=== PATIENT | male | born 2000 | race Two or more races ===

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

== ENCOUNTER 2019-01-27 05:26 | Emergency (ER) | payer MEDICAID ==
[~2019-01-27] VITALS: Ht 172.7 cm; Wt 95.0 kg
[2019-01-27] MEDS ORDERED: PANTOPRAZOLE SODIUM 40 MG/VIAL IV STA (08:00)
[2019-01-27] MEDS ORDERED: ONDANSETRON HCL 4MG/2ML INJ IV STA (08:00)
[2019-01-27] MEDS ORDERED: SODIUM CHLORIDE 0.9% 1,000 ML IV ONE (08:00)
[2019-01-27 09:02] LABS: BASOPHILS % 1.1 % (0.0-2.0); CLARITY URINE CLEAR (CLEAR); COLOR URINE DARK YELLOW (YELLOW); EOSINOPHILS % 3.5 % (0.0-5.0); HEMOGLOBIN. 14.2 g/dL (14.0-18.0); KETONES URINE NEGATIVE (NEGATIVE); LEUKOCYTE ESTERASE URINE NEGATIVE (NEGATIVE); LYMPHOCYTES % 29.2 % (20.0-50.0); MEAN CORPUSCULAR VOLUME 83.1 fL (80.0-94.0); MEAN PLATELET VOLUME 7.7 fl (7.4-10.4); NEUTROPHILS % 58.2 % (40.0-76.0); NITRITE URINE NEGATIVE (NEGATIVE); OCCULT BLOOD URINE TRACE (NEGATIVE); PH URINE 5.5 (4.5-8.0); PLATELET 258 x1000/uL (130-400); PROTEIN URINE NEGATIVE (NEGATIVE); RED BLOOD CELL COUNT 5.05 mill/uL (4.7-6.1); RED CELL DISTRIBUTION WIDTH 14.8 % (11.6-14.6); SPECIFIC GRAVITY URINE 1.036 (1.005-1.030); UROBILINOGEN URINE 0.2 E.U./dL (0.2-1.0)
[2019-01-27 09:10] LABS: CHLORIDE 108 mEq/L (98-107)
[2019-01-27 09:15] LABS: ETHANOL BLOOD < 10 mg/dL
[2019-01-27 09:47] LABS: *AMPHETAMINES SCREEN URINE NEGATIVE (NEGATIVE); *BARBITURATES SCREEN URINE NEGATIVE (NEGATIVE); *BENZODIAZEPINES SCREEN URINE NEGATIVE (NEGATIVE); *COCAINE SCREEN URINE NEGATIVE (NEGATIVE); CANNABINOID URINE SCREEN NEGATIVE (NEGATIVE); METHADONE URINE SCREEN NEGATIVE (NEGATIVE); OPIATES URINE SCREEN NEGATIVE (NEGATIVE); PHENCYCLIDINE URINE SCREEN NEGATIVE (NEGATIVE)
[2019-01-27 10:15] VITALS: BP 126/76
== END 2019-01-27 10:14 | disposition home or self-care (01) ==
LOC: ER 05:26
DX: R11.2 Nausea with vomiting, unspecified (principal); F17.200 Nicotine dependence, unspecified, uncomplicated; Z98.890 Other specified postprocedural states
CPT/HCPCS: 36415; 71045; 80053; 80305; 80320; 81003; 83690; 85025; 85610; 96374; 96375; 99284; C9113; J2405; J7030; G0480

== ENCOUNTER 2020-02-01 00:05 | Emergency (ER) | payer MEDICAID ==
[~2020-02-01] VITALS: Ht 172.7 cm; Wt 95.5 kg
[2020-02-01 00:08] VITALS: BP 131/81
[2020-02-01] MEDS ORDERED: KETOROLAC 60MG/2ML VIAL IM ONE (00:30)
[2020-02-01] MEDS ORDERED: ALBUTEROL (0.5%) 2.5MG/0.5ML NEB HHN ONE (01:00)
== END 2020-02-01 02:34 | disposition home or self-care (01) ==
LOC: ER 00:05
DX: U07.1 COVID-19 (principal); J45.909 Unspecified asthma, uncomplicated; E78.00 Pure hypercholesterolemia, unspecified; Z90.49 Acquired absence of other specified parts of digestive tract
CPT/HCPCS: 71045; 96372; 99284; C9803; J1885; U0003

== ENCOUNTER 2020-06-24 00:28 | Emergency (ER) | payer MEDICAID ==
[~2020-06-24] VITALS: Ht 172.7 cm; Wt 82.0 kg
[2020-06-24] MEDS ORDERED: ONDANSETRON HCL 4MG/2ML INJ IV STA (03:07)
[2020-06-24] MEDS ORDERED: SODIUM CHLORIDE 0.9% 1,000 ML IV ONE (03:15)
[2020-06-24 03:17] LABS: HEMATOCRIT. 46.6 % (42.0-52.0); HEMOGLOBIN. 15.8 g/dL (14.0-18.0); MEAN CORPUSCULAR HEMOGLOBIN 28.4 pg (28.0-32.0); MEAN PLATELET VOLUME 8.4 fl (7.4-10.4); PLATELET 228 x1000/uL (130-400); RED BLOOD CELL COUNT 5.55 mill/uL (4.7-6.1); RED CELL DISTRIBUTION WIDTH 13.7 % (11.6-14.6)
[2020-06-24 03:20] LABS: CHLORIDE 107 mEq/L (98-107)
[2020-06-24 05:19] LABS: CLARITY URINE CLEAR (CLEAR); COLOR URINE DARK YELLOW (YELLOW); KETONES URINE NEGATIVE (NEGATIVE); LEUKOCYTE ESTERASE URINE NEGATIVE (NEGATIVE); NITRITE URINE NEGATIVE (NEGATIVE); OCCULT BLOOD URINE TRACE (NEGATIVE); PROTEIN URINE TRACE (NEGATIVE); SPECIFIC GRAVITY URINE 1.031 (1.005-1.030); UROBILINOGEN URINE 0.2 E.U./dL (0.2-1.0)
[2020-06-24] MEDS ORDERED: ONDA4TAB5 MT (05:39)
[2020-06-24 06:21] VITALS: BP 134/76
[2020-06-24 07:56] LABS: PLATELET ESTIMATE NORMAL
== END 2020-06-24 06:28 | disposition home or self-care (01) ==
LOC: ER 00:28
DX: K29.70 Gastritis, unspecified, without bleeding (principal); F17.200 Nicotine dependence, unspecified, uncomplicated; R11.2 Nausea with vomiting, unspecified
CPT/HCPCS: 36415; 71045; 76705; 80053; 81003; 83690; 85025; 93005; 96361; 96374; 99285; J2405; J7030; Z7610

== ENCOUNTER 2021-03-15 21:29 | Emergency (ER) | payer MEDICAID, OTHER ==
[~2021-03-15] VITALS: Ht 172.7 cm; Wt 95.0 kg
[~2021-03-15 21:29] MED LIST: ONDA4TAB5 MT
[2021-03-15] MEDS ORDERED: TETRACAINE 0.5% OPHTH DROPS 4ML BOTHEYE ONE (22:30)
[2021-03-15] MEDS ORDERED: FLUORESCEIN SODIUM 1MG/STRIP BOTHEYE ONE (22:30)
[2021-03-15] MEDS ORDERED: BACITRACIN ZINC OINT UDPKT TOP ONE (23:00)
[2021-03-15] MEDS ORDERED: TETANUS, DIPHTHERIA, PERTUSSIS VAC/PF 0.5ML (>10YR OLD) IM ONE (23:00)
[2021-03-16] MEDS ORDERED: ACETAMINOPHEN WITH CODEINE 300/30MG TABLET PO ONE (00:45)
[2021-03-16] MEDS ORDERED: LIDOCAINE HCL/PF 1% 10 MG/ML 5ML VIAL INFIL ONE (00:45)
[2021-03-16] MEDS ORDERED: BACITRACIN ZINC OINT UDPKT TOP ONE (00:45)
[2021-03-16] MEDS ORDERED: LIDOCAINE HCL 1% 20ML VIAL (Pyxis) INJ INFIL NR (01:00)
[2021-03-16] MEDS ORDERED: BO1 TP (01:26)
[2021-03-16 02:28] VITALS: BP 121/76
== END 2021-03-16 02:30 | disposition home or self-care (01) ==
LOC: ER 21:29
DX: S01.112A Laceration without foreign body of left eyelid and periocular area, initial encounter (principal); J45.909 Unspecified asthma, uncomplicated; W01.110A Fall on same level from slipping, tripping and stumbling with subsequent striking against sharp glass, initial encounter; Y93.89 Activity, other specified; Y92.018 Other place in single-family (private) house as the place of occurrence of the external cause
CPT/HCPCS: 12011; 70486; 90471; 90715; 99284; J3490; Z7610

== ENCOUNTER 2021-03-21 00:12 | Emergency (ER) | payer MEDICAID ==
[~2021-03-21] VITALS: Ht 172.7 cm; Wt 96.0 kg
[~2021-03-21 00:12] MED LIST changes: +BO1 TP
[2021-03-21 00:29] VITALS: BP 130/83
== END 2021-03-21 01:01 | disposition home or self-care (01) ==
LOC: ER 00:12
DX: Z48.02 Encounter for removal of sutures (principal); J45.909 Unspecified asthma, uncomplicated
CPT/HCPCS: 99281

== ENCOUNTER 2021-09-14 03:56 | Emergency (ER) | payer MEDICAID, OTHER ==
[~2021-09-14] VITALS: Ht 172.7 cm; Wt 97.0 kg
[2021-09-14] MEDS ORDERED: ACETAMINOPHEN 325MG TABLET PO ONE (07:00)
[2021-09-14] MEDS ORDERED: LIDOCAINE HCL/EPINEPHRINE 1%-EPI 1:100,000 20 ML VIAL INFIL ONE (07:00)
[2021-09-14] MEDS ORDERED: IBUPROFEN 800MG TABLET PO ONE (07:45)
[2021-09-14 07:50] VITALS: BP 134/86
[2021-09-14] MEDS ORDERED: TOPUD PO (08:43)
== END 2021-09-14 09:25 | disposition home or self-care (01) ==
LOC: ER 03:56
DX: S61.411A Laceration without foreign body of right hand, initial encounter (principal); J45.909 Unspecified asthma, uncomplicated; W01.0XXA Fall on same level from slipping, tripping and stumbling without subsequent striking against object, initial encounter; Y93.89 Activity, other specified; Y92.89 Other specified places as the place of occurrence of the external cause; Y99.8 Other external cause status
CPT/HCPCS: 12001; 73120; 99283; J3490

== ENCOUNTER 2021-11-09 03:20 | Emergency (ER) | payer MEDICAID, OTHER ==
[~2021-11-09] VITALS: Ht 172.7 cm; Wt 95.0 kg
[~2021-11-09 03:20] MED LIST changes: +TOPUD PO
[2021-11-09] MEDS ORDERED: IBUP-2030 PO (06:10)
[2021-11-09] MEDS ORDERED: AMOX1TAB16 PO (06:10)
[2021-11-09 06:26] VITALS: BP 114/78
== END 2021-11-09 06:27 | disposition home or self-care (01) ==
LOC: ER 03:20
DX: K04.7 Periapical abscess without sinus (principal); R01.1 Cardiac murmur, unspecified; Q79.8 Other congenital malformations of musculoskeletal system
CPT/HCPCS: 99283

== ENCOUNTER 2025-01-04 15:49 | Emergency (ER) | payer OTHER ==
[~2025-01-04] VITALS: Ht 172.7 cm; Wt 102.0 kg
[~2025-01-04 15:49] MED LIST changes: +AMOX1TAB16 PO; +IBUP-2030 PO
[2025-01-04 16:53] VITALS: BP 137/90; PULSE 91; RESP 17; TEMP 36.7; O2SAT 99
[2025-01-04] MEDS ORDERED: BO1 TP (17:30)
== END 2025-01-04 17:49 | disposition home or self-care (01) ==
LOC: ER 15:49
DX: S41.011D Laceration without foreign body of right shoulder, subsequent encounter (principal); S41.012D Laceration without foreign body of left shoulder, subsequent encounter; Z79.1 Long term (current) use of non-steroidal anti-inflammatories (NSAID); X58.XXXD Exposure to other specified factors, subsequent encounter
CPT/HCPCS: 99282